=== PATIENT | female | born 1980 | race Hispanic/Latino ===

== ENCOUNTER 2024-07-17 16:50 | Emergency (ER) | payer OTHER ==
[~2024-07-17] VITALS: Ht 152.4 cm; Wt 101.8 kg
[2024-07-17] MEDS ORDERED: OZEMPIC0.25 MG/02 SQ (17:13)
[2024-07-17] MEDS ORDERED: ACETAMINOPHEN 500 MG TAB PO ONE (17:45)
[2024-07-17] MEDS ORDERED: SUMAtriptan succinate 6 MG/0.5 ML VIAL SUB-Q ONE (17:45)
[2024-07-17] MEDS ORDERED: ondansetron HCL 4 MG TAB PO ONE (17:45)
[2024-07-17] MEDS ORDERED: IMITREX25 MG PO (17:46)
[2024-07-17] MEDS ORDERED: ONDANSETRON ODT4 MG PO (17:46)
[2024-07-17 19:19] VITALS: BP 137/83
== END 2024-07-17 19:19 | disposition home or self-care (01) ==
LOC: ED 16:50
DX: G43.109 Migraine with aura, not intractable, without status migrainosus (principal); Z79.85 Long-term (current) use of injectable non-insulin antidiabetic drugs
CPT/HCPCS: 99283; A9270; J3030